=== PATIENT | female | born 2005 | race Caucasian/White ===

== ENCOUNTER 2023-09-08 17:49 | Emergency (ER) | payer OTHER, SELFPAY ==
--- NOTE | 2023-09-08 18:01 | ED.FEMALEGU ---
HPI - Female Genitourinary General Chief complaint: Urogenital-Female Stated complaint: vaginal bleeding Time Seen by Provider: 09/08/23 17:53 Source: patient Mode of arrival: ambulatory Limitations: no limitations History of Present Illness HPI Narrative: Patient is a 17-year-old female who presents with over a month of vaginal bleeding. Patient states that is not abnormal for her and has had episodes of 2-3 months of consistent bleeding. Patient states bleeding is not heavy. Changes tampon or pad every 4-6 hours. Per significant other patient had episode of unconsciousness at noon today along with vomiting and diarrhea after eating. Patient also reports worsening lower abdominal pain that is different than typical menstrual cramping. Denies any drug use. Is on the Nexplanon. Has history of hypertension lupus and epilepsy. Patient is currently taking all medications as prescribed. Patient does have an Ob. Related Data Home Medications Medication Instructions Recorded Confirmed clobetasol 0.05 % scalp solution 1 applic topical BID 09/08/23 09/08/23 docusate sodium 100 mg capsule 1 mg PO BID PRN Constipation 09/08/23 09/08/23 hydroxychloroquine 200 mg tablet 400 mg PO DAILY 09/08/23 09/08/23 mycophenolate sodium 360 mg 720 mg PO BID 09/08/23 09/08/23 tablet,delayed release topiramate 50 mg tablet 50 mg PO BID 09/08/23 09/08/23 Allergies Allergy/AdvReac Type Severity Reaction Status Date / Time No Known Allergies Allergy Verified 09/08/23 18:12 Review of Systems Review of Systems: All systems reviewed & are unremarkable except as noted in HPI and below Constitutional: Constitutional: Denies body ache(s), Denies chills, Denies fatigue, Denies fever(s), Denies headache(s), Denies malaise and Denies weakness Eyes: Eyes: Denies blurry vision, Denies irritation and Denies loss of vision ENT: Denies otalgia, Denies headache(s), Denies nasal discharge, Denies sinus pain and Denies sore throat Cardiovascular: Cardiovascular: Denies chest pain, Denies irregular heart rhythm and Denies dyspnea Respiratory: Respiratory: Denies dyspnea Gastrointestinal: Gastrointestinal: Reports abdominal pain, Denies melena, Denies hematochezia, Reports diarrhea, Denies nausea and Reports vomiting Genitourinary: Genitourinary: Reports abnormal vaginal bleeding Musculoskeletal: Musculoskeletal: Denies back pain, Denies myalgias and Denies arthralgias Integumentary/Breasts: Skin/Breast: Denies pruritus and Denies rash Neurologic: Denies headache(s), Denies loss of vision and Denies weakness Psychiatric: Psychiatric: Reports no additional psychiatric complaints Endocrine: Endocrine: Denies fatigue PMFSH Comments At time of signature, agree with nursing past medical, surgical, social and family history. There is no relevant family history pertinent to the presenting complaint. Exam Const: General: cooperative, healthy appearing, comfortable, no acute distress and well nourished Nutritional Appearance: well nourished Orientation/consciousness: patient oriented x3 Limitations: no limitations HENMT: Head: normal to inspection, normocephalic and atraumatic Ears: hearing grossly normal bilaterally and external ears normal Face/Nose/Sinus: Normal external nose present, normal facial exam and face symmetric Face and sinus: normal facial exam and face symmetric Mouth: Yes lip normal Eyes: General: appearance normal, both eyes and all related structures Alignment and Position: alignment normal and position normal Periorbital: periorbital findings normal Eyelids: eyelids normal Pupils: Equal, round and reactive pupils present EOM: EOMs intact bilaterally Neck: Neck: normal visual inspection, full ROM and supple Chest: Chest palpation & inspection: normal inspection of the chest Resp: Effort & Inspection: normal respiratory effort and able to speak in complete sentences Auscultation: clear to auscultation bilaterally Cardio: R
[2023-09-08 18:02] VITALS: BP 123/74; PULSE 83; RESP 16; TEMP 37.3; O2SAT 99
[2023-09-08 18:17] VITALS: BP 123/74; PULSE 83; RESP 16; TEMP 37.3; O2SAT 99
== END 2023-09-08 18:22 | disposition short-term general hospital (02) ==
PROVIDERS: Emergency Provider Nurse Practitioner Family
DX: N93.9 Abnormal uterine and vaginal bleeding, unspecified (principal); R10.31 Right lower quadrant pain; R10.32 Left lower quadrant pain; M32.9 Systemic lupus erythematosus, unspecified; G40.909 Epilepsy, unspecified, not intractable, without status epilepticus
CPT/HCPCS: 99202; G0463

== ENCOUNTER 2023-09-08 18:46 | Emergency (ER) | payer OTHER, SELFPAY ==
[2023-09-08 18:55] VITALS: BP 119/78; PULSE 75; RESP 15; TEMP 36.6; O2SAT 100
[2023-09-08 20:24] LABS: Basophils Percent Auto 0.6 % (0.2-1.2); Eosinophils Absolute Auto 0.1 K/mm3 (0-0.3); Eosinophils Percent Auto 1.4 % (0-4.4); Hematocrit 40.9 % (37.0-47.0); Hemoglobin 13.4 g/dL (12.0-15.0); Immature Granulocyte Absolute 0.03 K/mm3 (0.00-0.031); Immature Granulocyte Percent A 0.4 % (0-0.5); Lymphocytes Absolute Auto 1.47 K/mm3 (0.9-3.2); Lymphocytes Percent Auto 20.8 % (18.3-44.2); Mean Corpuscular HGB Conc 32.8 g/dl (32-36); Mean Corpuscular Hemoglobin 30.9 pg (26-34); Mean Corpuscular Volume 94.5 fl (80-100); Mean Platelet Volume 11.5 fl (7.4-10.4); Monocytes Absolute Auto 0.6 K/mm3 (0.1-0.6); Monocytes Percent Auto 9.1 % (2.6-8.5); Neutrophils Absolute Auto 4.8 K/mm3 (1.3-6.7); Neutrophils Percent Auto 67.7 % (45.5-73.1); Platelet Count Result 178 k/mm3 (150-375); Red Blood Count 4.33 M/mm3 (4.2-5.4); Red Cell Distribution Width 12.5 % (11.5-14.5); White Blood Count 7.1 K/mm3 (4.5-10.0)
[2023-09-08 20:50] LABS: Prothrombin Time 13.8 Seconds (11.1-14.7)
[2023-09-08 20:51] LABS: Partial Thromboplastin Time 29.3 Seconds (22.3-36.8)
--- NOTE | 2023-09-08 20:54 | ED_ITS ---
HPI - Female Genitourinary General Chief complaint: Vaginal Bleeding Stated complaint: vag bleeding Time Seen by Provider: 09/08/23 18:57 History of Present Illness HPI Narrative: This is a 17-year-old female, history of lupus, with Nexplanon implantation and May of this year, who presents to the emergency department complaining vaginal bleeding for the past month. The patient states she uses approximately 5 tampons or maxi pads a day. This is associated with some fatigue, though no chest pain shortness of breath or loss of consciousness. The patient states she has had previous and periods, the non lasting this long. She complains of mild associated cramping but has no other complaints at this time. Related Data Home Medications Medication Instructions Recorded Confirmed clobetasol 0.05 % scalp solution 1 applic topical BID 09/08/23 09/08/23 docusate sodium 100 mg capsule 1 mg PO BID PRN Constipation 09/08/23 09/08/23 hydroxychloroquine 200 mg tablet 400 mg PO DAILY 09/08/23 09/08/23 mycophenolate sodium 360 mg 720 mg PO BID 09/08/23 09/08/23 tablet,delayed release topiramate 50 mg tablet 50 mg PO BID 09/08/23 09/08/23 Allergies Allergy/AdvReac Type Severity Reaction Status Date / Time No Known Allergies Allergy Verified 09/08/23 18:59 Review of Systems Review of Systems: CONSTITUTIONAL: Complains of some fatigue. Denies fever, chills, or sweats. CARDIOVASCULAR: Denies chest pain, palpitations, or edema. RESPIRATORY: Denies cough or dyspnea. GASTROINTESTINAL: Denies abdominal pain, nausea, vomiting, or diarrhea. GENITOURINARY: LMP ongoing. Denies dysuria or hematuria. SKIN: Denies rash or itching. MUSCULOSKELETAL: Denies back pain, joint pain, or myalgia. NEUROLOGIC: Denies headache, numbness, dizziness, or weakness. PSYCHIATRIC: Denies anxiety or depression. [facility] Past Medical History Medical History Lupus Seizures Surgical History Surgical History No significant past surgical history Social History Social History (Updated 09/08/23 @ 20:56 by Marc Parker MD) Smoking status: Never smoker Alcohol intake: never Substance use: never Exam Narrative: GENERAL: Well-developed, well-nourished, and in no acute distress. HEAD: Normocephalic, atraumatic. EYES: PERRLA and EOMI. CHEST: Clear to auscultation. No respiratory distress. No wheezes rales or rhonchi HEART: Regular rate and rhythm. No murmur heard. Normal peripheral pulses. ABDOMEN: Soft, nontender, nondistended, normal active bowel sounds. (chaperoned by female inventory technician Taye): Normal external female genitalia. Speculum exam demonstrates a small amount of blood in the vaginal vault without active bleeding or passage of clots. Cervix appears normal. Bimanual exam does not demonstrate cervical motion tenderness though does elicit mild bilateral adnexal cramping. EXTREMITIES: Normal range of motion. No edema. SKIN: Warm, dry, no rash. NEURO: Alert and oriented x3. No focal deficit. Moving all 4 limbs spontaneously PSYCH: Normal mood and affect. Course Course Emergency Course: 20:57 - CBC unremarkable including hemoglobin of 13.4 normal platelets. Coags within normal limits. Bedside negative. Will discharge recommendation for Gynecology follow-up. I suspect patient may have abnormal vaginal bleeding associated with Nexplanon use. I discussed the findings and recommendations with the patient. Discussed return and emergency precautions including signs/symptoms of symptomatic anemia and ACS. The patient voiced understanding and agreement with the plan. All questions answered to her satisfaction. Vital Signs Vital signs: Vital Signs Temperature 97.8 F 09/08/23 18:55 Pulse Rate 75 09/08/23 18:55 Respiratory Rate 15 09/08/23 18:55 Blood Pressure 119/78 09/08/23 18:55 Pulse Oximetry 100 09/08/23 18:55 Oxygen Delivery Room Air 09/08/23 18:55 Temperature 97.8 F 09/08/23 18:55 Pulse Rate 75 09/08/23 18:55 Respiratory Rate 15 09/08/23 18:55 Blood Pressure 119/78 09/08/23 18:55 Pulse Oximetry 100 09/08/23 18:55 Oxygen Delivery Room Air 09/08/23 18:55 MDM - Female Genitourinary MDM Narrative Medical decision making narrative: Plan: Labs, test, reassess Differential Diagnosis Differential diagnosis: Likely dysmenorrhea and other (Coagulopathy, anemia, medication side effect, other) Lab Data 09/08/23 19:59 Labs: Lab Results 09/08/23 09/08/23 Range/Units 19:59 20:32 WBC 7.1 (4.5-10.0) K/mm3 RBC 4.33 (4.2-5.4) M/mm3 Hgb 13.4 (12.0-15.0) g/dL Hct 40.9 (37.0-47.0) % MCV 94.5 (80-100) fl MCH 30.9 (26-34) pg MCHC 32.8 (32-36) g/dl RDW 12.5 (11.5-14.5) % Plt Count 178 (150-375) k/mm3 MPV 11.5 H (7.4-10.4) fl Immature Gran % (Auto) 0.4 (0-0.5) % Neut % (Auto) 67.7 (45.5-73.1) % Lymph % (Auto) 20.8 (18.3-44.2) % [place] % (Auto) 9.1 H (2.6-8.5) % Eos % (Auto) 1.4 (0-4.4) % Baso % (Auto) 0.6 (0.2-1.2) % Lymph # (Auto) 1.47 (0.9-3.2) K/mm3 [place] # (Auto) 0.6 (0.1-0.6) K/mm3 Eos # (Auto) 0.1 (0-0.3) K/mm3 Baso # (Auto) 0.0 (0.0-0.1) K/mm3 Abs Immat Gran (auto) 0.03 (0.00-0.031) K/mm3 Absolute Neuts (auto) 4.8 (1.3-6.7) K/mm3 Absolute Nucleated RBC 0.000 (0.0-0.012) K/mm3 Nucleated RBC % 0.0 (0.0-0.2) % PT 13.8 (11.1-14.7) Seconds INR 1.0 APTT 29.3 (22.3-36.8) Seconds UCG Bedside Result Negative Reference Range: Negative Discharge Plan Discharge Clinical Impression: Abnormal vaginal bleeding Patient Disposition: Home, Self-Care Condition: Stable Instructions: Antibiotic Form, Abnormal (Dysfunctional) Uterine Bleeding (ED) Additional Instructions: You were seen in the emergency department. I suspect your symptoms are related to your Nexplanon. I recommend following up with your primary care doctor and printed circuit boards stripper etcher. If you develop chest pain, shortness of breath, loss of consciousness, or if you have other emergent concerns for life, limb, or eyesight, return to the emergency department. Patient Language: Lithuanian Prescriptions: No Action docusate sodium 100 mg capsule 1 mg PO BID PRN (Reason: Constipation) hydroxychloroquine 200 mg tablet 400 mg PO DAILY clobetasol 0.05 % solution 1 applic TOPICAL BID topiramate 50 mg tablet 50 mg PO BID mycophenolate sodium 360 mg tablet,delayed release (DR/EC) 720 mg PO BID Follow-up/Referrals: Katelynn Hernandez [Other] - 2 Weeks PHYSICIAN,FORMING PRESS OPERATOR [Primary Care Provider] - Time of Disposition: 20:59
[2023-09-08] MEDS: ACETAMINOPHEN 500 MG TABLET 1000 MG PO (20:57)
== END 2023-09-08 21:13 | disposition home or self-care (01) ==
PROVIDERS: Emergency Provider Preventive Medicine Aerospace Medicine
DX: N93.9 Abnormal uterine and vaginal bleeding, unspecified (principal); M32.9 Systemic lupus erythematosus, unspecified
CPT/HCPCS: 36415; 81025; 85025; 85610; 85730; 99202; 99283; A9270; G0463

== ENCOUNTER 2024-01-15 16:58 | Emergency (ER) | payer OTHER, SELFPAY ==
--- NOTE | ~2024-01-15 | XR_ITS ---
EXAMINATION: XR chest 2V DATE: 01/15/2024 18:46 INDICATION: Intentional bleach ingestion. TECHNIQUE: Frontal and lateral views of the chest were obtained. COMPARISON: None. FINDINGS: There is no pneumonia, pleural effusion, or pneumothorax. The heart size is normal. IMPRESSION: 1. No acute cardiopulmonary disease. Reviewed, dictated and finalized at location A.
[2024-01-15 17:01] VITALS: BP 142/92; PULSE 99; RESP 16; TEMP 37.1; O2SAT 100
--- NOTE | 2024-01-15 17:04 | ECG_ITS ---
Test Date: 2024-01-15 17:29:04 Measurements Intervals [place] Rate: 90 P: 61 WV: 154 QRS: -3 QRSD: 91 T: 30 QT: 355 QTc: 435 Interpretive Statements SINUS RHYTHM WITH SINUS ARRHYTHMIA No previous ECG available for comparison Electronically Signed On 01-16-2024 15:33:10 CDT by Arianna Medeiros M.D.
--- NOTE | 2024-01-15 17:06 | ED.PSYCH ---
HPI - Psych General Stated Complaint: INTENTIONAL BLEACH INGESTION Time Seen by Provider: 01/15/24 17:06 Focused HPI: This is a 18 year old female that presents to the ER after suicide attempt. Reports she has been struggling to find a job and that has been very stressful. Reports she drank about a capful of bleach in order to kill herself. Reports history of previous attempts. Reports some irritation in her throat. Denies difficulty swallowing or trouble breathing. GENERAL: Tearful, anxious, but in no acute distress. HEAD: Normocephalic, atraumatic. CHEST: Clear to auscultation. ?No respiratory distress. HEART: Regular rate and rhythm.? NEURO: ?Alert and oriented x3. Patient screened in triage and initial orders placed.? ?Additional care and disposition to be based upon?diagnostic testing and treatment. Related Data Home Medications Medication Instructions Recorded Confirmed clobetasol 0.05 % scalp solution 1 applic topical BID 09/08/23 09/08/23 docusate sodium 100 mg capsule 1 mg PO BID PRN Constipation 09/08/23 09/08/23 hydroxychloroquine 200 mg tablet 400 mg PO DAILY 09/08/23 09/08/23 mycophenolate sodium 360 mg 720 mg PO BID 09/08/23 09/08/23 tablet,delayed release topiramate 50 mg tablet 50 mg PO BID 09/08/23 09/08/23 Allergies Allergy/AdvReac Type Severity Reaction Status Date / Time No Known Allergies Allergy Verified 09/08/23 18:59 [facility] Past Medical History Medical History Lupus Seizures Surgical History Surgical History No significant past surgical history Social History Social History (Updated 09/08/23 @ 20:56 by Marc Parker MD) Smoking status: Never smoker Alcohol intake: never Substance use: never Discharge Plan Discharge Prescriptions: No Action docusate sodium 100 mg capsule 1 mg PO BID PRN (Reason: Constipation) hydroxychloroquine 200 mg tablet 400 mg PO DAILY clobetasol 0.05 % solution 1 applic TOPICAL BID topiramate 50 mg tablet 50 mg PO BID mycophenolate sodium 360 mg tablet,delayed release (DR/EC) 720 mg PO BID Follow-up/Referrals: PHYSICIAN,RACING MECHANIC [Primary Care Provider] -
--- NOTE | 2024-01-15 17:11 | ED.PSYCH ---
HPI - Psych General Chief Complaint: Psychiatric Symptoms Stated Complaint: INTENTIONAL BLEACH INGESTION Time Seen by Provider: 01/15/24 17:06 Related Data Home Medications Medication Instructions Recorded Confirmed clobetasol 0.05 % scalp solution 1 applic topical BID 09/08/23 09/08/23 docusate sodium 100 mg capsule 1 mg PO BID PRN Constipation 09/08/23 09/08/23 hydroxychloroquine 200 mg tablet 400 mg PO DAILY 09/08/23 09/08/23 mycophenolate sodium 360 mg 720 mg PO BID 09/08/23 09/08/23 tablet,delayed release topiramate 50 mg tablet 50 mg PO BID 09/08/23 09/08/23 Allergies Allergy/AdvReac Type Severity Reaction Status Date / Time No Known Allergies Allergy Verified 09/08/23 18:59 [facility] Past Medical History Medical History Lupus Seizures Surgical History Surgical History No significant past surgical history Social History Social History (Updated 09/08/23 @ 20:56 by Marc Parker MD) Smoking status: Never smoker Alcohol intake: never Substance use: never Course Vital Signs Vital signs: Vital Signs Temperature 37.1 C 01/15/24 17:01 Pulse Rate 99 01/15/24 17:01 Respiratory Rate 16 01/15/24 17:01 Blood Pressure 142/92 H 01/15/24 17:01 Pulse Oximetry 100 01/15/24 17:01 Oxygen Delivery Room Air 01/15/24 17:01 Temperature 37.1 C 01/15/24 17:01 Pulse Rate 99 01/15/24 17:01 Respiratory Rate 16 01/15/24 17:01 Blood Pressure 142/92 H 01/15/24 17:01 Pulse Oximetry 100 01/15/24 17:01 Oxygen Delivery Room Air 01/15/24 17:01 Discharge Plan Discharge Prescriptions: No Action docusate sodium 100 mg capsule 1 mg PO BID PRN (Reason: Constipation) hydroxychloroquine 200 mg tablet 400 mg PO DAILY clobetasol 0.05 % solution 1 applic TOPICAL BID topiramate 50 mg tablet 50 mg PO BID mycophenolate sodium 360 mg tablet,delayed release (DR/EC) 720 mg PO BID Follow-up/Referrals: PHYSICIAN,ACCOUNTS CLERK [Primary Care Provider] -
[2024-01-15 17:31] VITALS: BP 129/85; PULSE 107; RESP 14; O2SAT 100
[2024-01-15 17:47] LABS: BEDSIDEPREGUCG Negative
--- NOTE | 2024-01-15 17:54 | PC.NURSE ---
Called poison control. They state no intervention needed. supportive care
--- NOTE | 2024-01-15 17:59 | PC.NURSE ---
meal tray ordered for patient
[2024-01-15 18:00] LABS: Add Urine Microscopic? YES; Appearance Urine Clear (Clear); Bacteria Urine 2+ /hpf; Bilirubin Urine Negative (Negative); Blood Urine 1+ (Negative); Color Urine Yellow (Yellow); Glucose Urine UA Negative (Negative); Ketones Urine Negative (Negative); Leukocyte Esterase Ur Trace LEU/UL (Negative); Nitrate Urine Negative (Negative); Non Pathogenic Casts 0-2; Protein Urine Trace mg/dL (Negative); RBC Urine 0-2 /hpf (0-2); Squamous Epithelial Cell Urine Few /hpf (Few); Urobilinogen Urine 0.2 mg/dL (<2.0); WBC Urine 0-5 /hpf (0-3); pH Urine 5.5 (5.0-9.0)
[2024-01-15 18:10] LABS: Basophils Absolute Auto 0.1 K/mm3 (0.0-0.1); Basophils Percent Auto 0.6 % (0.2-1.2); Eosinophils Absolute Auto 0.2 K/mm3 (0-0.3); Eosinophils Percent Auto 2.5 % (0-4.4); Hematocrit 40.9 % (37.0-47.0); Hemoglobin 14.2 g/dL (12.0-15.0); Immature Granulocyte Absolute 0.05 K/mm3 (0.00-0.031); Immature Granulocyte Percent A 0.6 % (0-0.5); Lymphocytes Absolute Auto 1.62 K/mm3 (0.9-3.2); Lymphocytes Percent Auto 20.6 % (18.3-44.2); Mean Corpuscular HGB Conc 34.7 g/dl (32-36); Mean Corpuscular Volume 92.1 fl (80-100); Mean Platelet Volume 11.2 fl (7.4-10.4); Monocytes Absolute Auto 0.6 K/mm3 (0.1-0.6); Neutrophils Absolute Auto 5.3 K/mm3 (1.3-6.7); Neutrophils Percent Auto 67.7 % (45.5-73.1); Platelet Count Result 171 k/mm3 (150-375); Red Blood Count 4.44 M/mm3 (4.2-5.4); Red Cell Distribution Width 11.7 % (11.5-14.5); White Blood Count 7.9 K/mm3 (4.5-10.0)
[2024-01-15 18:11] LABS: Amphetamine Screen Urine Negative (Negative); Barbiturate Screen Urine Negative (Negative); Benzodiazepines Screen Urine Negative (Negative); Cannabinoid Screen Urine Negative (Negative); Cocaine Screen Urine Negative (Negative); Methadone Screen Urine Negative (Negative); Opiate Screen Urine Negative (Negative); Phencyclidine Screen Urine Negative (Negative)
[2024-01-15 18:19] LABS: Ethanol < 10 mg/dL (<10)
[2024-01-15 18:21] LABS: Alanine Aminotransferase 19 U/L (6-35); Albumin Level 4.2 g/dL (3.5-5.1); Alkaline Phosphatase 55 U/L (38-126); Anion Gap 10 mmol/L (4-12); Aspartate Amino Transferase 24 U/L (14-36); Bilirubin,Total 0.3 mg/dL (0.2-1.3); Blood Urea Nitrogen 15 mg/dL (7-17); Calcium 8.7 mg/dL (8.4-10.2); Carbon Dioxide 24 mmol/L (22-30); Chloride 104 mmol/L (98-107); Estimated CRCL calculation 89 ml/min; Estimated Glomerular Filt Rate > 60; Glucose 96 mg/dL (65-110); Lipase 58 U/L (23-300); Potassium 3.6 mmol/L (3.4-5.0); Sodium 138 mmol/L (137-145)
--- NOTE | 2024-01-15 18:27 | ED.PSYCH ---
HPI - Psych General Chief Complaint: Psychiatric Symptoms <Jennifer Bunch APRN - Last Filed: 01/15/24 19:36> Stated Complaint: INTENTIONAL BLEACH INGESTION <Jennifer Bunch APRN - Last Filed: 01/15/24 19:36> Time Seen by Provider: 01/15/24 17:06 <Jennifer Bunch APRN - Last Filed: 01/15/24 19:36> Focused HPI: This is a 18 year old female that presents to the ER after suicide attempt. Reports she has been struggling to find a job and that has been very stressful. Reports she drank about a capful of bleach in order to kill herself. Reports history of previous attempts. Reports some irritation in her throat. Denies difficulty swallowing or trouble breathing. GENERAL: Tearful, anxious, but in no acute distress. HEAD: Normocephalic, atraumatic. CHEST: Clear to auscultation. ?No respiratory distress. HEART: Regular rate and rhythm.? NEURO: ?Alert and oriented x3. Patient screened in triage and initial orders placed.? ?Additional care and disposition to be based upon?diagnostic testing and treatment. <Jennifer Bunch APRN - Last Filed: 01/15/24 19:36> History of Present Illness HPI Narrative: I have reviewed the HPI and agree with the assessment above performed by the PA. <Jennifer Bunch APRN - Last Filed: 01/15/24 19:36> Related Data Home Medications: Home Medications Medication Instructions Recorded Confirmed hydroxychloroquine 200 mg tablet 400 mg PO DAILY 09/08/23 01/15/24 mycophenolate sodium 360 mg 720 mg PO BID 09/08/23 01/15/24 tablet,delayed release topiramate 50 mg tablet 50 mg PO BID 09/08/23 01/15/24 <Jennifer Bunch APRN - Last Filed: 01/15/24 19:36> Allergies/Adverse Reactions: Allergies Allergy/AdvReac Type Severity Reaction Status Date / Time No Known Allergies Allergy Verified 01/15/24 17:33 <Jennifer Bunch APRN - Last Filed: 01/15/24 19:36> Review of Systems Review of Systems: All systems reviewed & are unremarkable except as noted in HPI and below <Jennifer Bunch APRN - Last Filed: 01/15/24 19:36> PMFSH Past Medical History Medical History: Medical History Lupus Seizures <Jennifer Bunch APRN - Last Filed: 01/15/24 19:36> Surgical History Surgical History: Surgical History No significant past surgical history <Jennifer Bunch APRN - Last Filed: 01/15/24 19:36> Social History Social History: Social History Smoking status: Never smoker Alcohol intake: never Substance use: never Substance use type: does not use <Jennifer Bunch APRN - Last Filed: 01/15/24 19:36> Exam Narrative: GENERAL: Well-appearing, well-nourished and in no acute distress. CARDIAC: Regular rate and rhythm without murmurs, rubs or gallops. RESPIRATORY: Clear to auscultation bilaterally. No wheezes, rales or rhonchi. ABDOMEN: Soft, nontender, normoactive bowel sounds throughout, no guarding, no rebound. No masses appreciated. EXTREMITIES: Normal range of motion, no swelling, clubbing or other deformities. NEUROLOGICAL: Cranial nerves II through XII grossly intact, no focal deficits noted. SKIN: Warm, dry, normal color, no rashes, no lesions. <Jennifer Bunch APRN - Last Filed: 01/15/24 19:36> Course Course Emergency Course: patient handed off to me by Jennifer Medellin pending crisis evaluation. She has been evaluated by crisis and deemed acceptable for psychiatric admission under voluntary status. Pending bed assignment, patient began developing a headache and had an episode of vomiting. Vomit is without hematemesis. She denies abdominal pain or other symptoms. She remains well-appearing, temperature is normal at 97. She was given Tylenol and ODT Zofran. Pt tells me she did spit the bleach out prior to swallowing. Bed has been
[2024-01-15 18:28] LABS: Acetaminophen < 10 ug/mL (10-30); Salicylate < 1.0 mg/dL (2-20)
[2024-01-15 20:12] VITALS: BP 110/56; PULSE 79; RESP 16; TEMP 36.8; O2SAT 100
--- NOTE | 2024-01-15 20:16 | PC.NURSE ---
Poison control case closed; .
[2024-01-15] MEDS: TOPIRAMATE 25 MG TABLET 50 MG PO (21:47)
[2024-01-16] MEDS: ACETAMINOPHEN 500 MG TABLET 1000 MG PO (00:01)
[2024-01-16] MEDS: ONDANSETRON HCL ODT 4 MG TABLET PO (00:02)
--- NOTE | 2024-01-16 01:05 | PC.NURSE ---
Discussion with patient about options for placement and how adoption social worker believes that it is not safe for her to go home, therefor involuntary paperwork was filled out by adoption social worker. Patient states she is willing to get help at this time.
--- NOTE | 2024-01-16 01:16 | PC.NURSE ---
Bridgette from crisis stated that [facility] would like the patient's chart. Chart faxed to [phone] at this time.
--- NOTE | 2024-01-16 02:43 | PC.NURSE ---
[facility] accepted patient; earliest arrival time is 1030. Accepting physician Eleazar Olivares WEATHER REPORTER; report given to Blake JUNE.
[2024-01-16] MEDS: TOPIRAMATE 25 MG TABLET 50 MG PO (08:12)
[2024-01-16] MEDS: HYDROXYCHLOROQUINE SULFATE 200 MG TABLET 400 MG PO (08:15)
[2024-01-16 08:19] VITALS: BP 117/67; PULSE 79; RESP 16; TEMP 36.8; O2SAT 99
--- NOTE | 2024-01-16 08:21 | PC.NURSE ---
Breakfast tray ordered for pt
--- NOTE | 2024-01-16 09:06 | PC.NURSE ---
earnest called at [phone] eta [phone] to 1300 trip # [id number]
[2024-01-16 12:07] VITALS: BP 127/77; PULSE 99; RESP 18; O2SAT 99
== END 2024-01-16 12:10 ==
PROVIDERS: Physician Assistant; Emergency Provider Physician Assistant
DX: R45.851 Suicidal ideations (principal); M32.9 Systemic lupus erythematosus, unspecified; G40.909 Epilepsy, unspecified, not intractable, without status epilepticus
CPT/HCPCS: 36415; 71046; 80053; 80307; 81001; 81025; 83690; 84443; 85025; 93005; 99285; A9270

== ENCOUNTER 2025-03-30 10:17 | Emergency (ER) | payer OTHER, SELFPAY ==
[2025-03-30 10:25] VITALS: BP 124/78; PULSE 94; RESP 18; TEMP 37; O2SAT 99
--- NOTE | 2025-03-30 10:47 | ED_ITS ---
HPI - Eye Problem General Chief complaint: Eye Problems Stated complaint: Eyes Irritation Time Seen by Provider: 03/30/25 10:41 Source: patient and RN notes reviewed Mode of arrival: ambulatory Limitations: no limitations History of Present Illness HPI Narrative: 19-year-old female presents concern for eye irritation for 2 days. She reports she had redness, watery drainage and there crustiness yesterday. Reports those symptoms are improving, she did not have any crusted drainage this morning. She denies vision changes, pain, irritation. Reports she was exposed to adrianna CASE chief complaint: eye redness Related Data Home Medications ?Medication ?Instructions ?Recorded ?Confirmed ?Last Taken ?Type hydroxychloroquine 200 mg tablet 400 mg PO DAILY 09/0701/15/24 01/15/24 History mycophenolate sodium 360 mg 720 mg PO BID 09/08/2301/15/24 History tablet,delayed release topiramate 50 mg tablet 50 mg PO BID 09/08/2301/15/24 History zonisamide 100 mg capsule mg PO 03/30/25 Unknown Hist ory Allergies Allergy/AdvReac Type Severity Reaction Status Date / Time No Known Allergies Allergy Verified 03/30/25 10:31 Review of Systems Review of Systems: CONSTITUTIONAL: Denies malaise, chills, sweats, or fever. EYES: Denies visual changes. Reports bilateral redness, itchiness, crusty discharge. ENT: Denies rhinorrhea, congestion, sinus pain, otalgia or sore throat. SKIN: Denies rash or itching. NEUROLOGIC: Denies numbness, weakness, or headache. PSYCHIATRIC: Denies anxiety or depression. All systems reviewed & are unremarkable except as noted in HPI and below [facility] Past Medical History Medical History Lupus Seizures Surgical History Surgical History No significant past surgical history Social History Social History Alcohol intake: never Substance use: never Substance use type: does not use Comments At time of signature, agree with nursing past medical, surgical, social and family history. There is no relevant family history pertinent to the presenting complaint Exam Narrative: GENERAL: Well-appearing, well-nourished, and in no acute distress. HEAD: Normocephalic, atraumatic. EYES: PERRLA, sclera clear, and EOMI. No nystagmus. Bilateral conjunctivae and sclera clear. Upper and lower eyelid unremarkable, no periorbital edema noted ENT: Nares clear, turbinates pink, no rhinorrhea or epistaxis. Mucous membranes moist. TM pearly mcgowan with sharp light reflex bilaterally; no tragal tenderness. NECK: Supple. CHEST: No respiratory distress. Speaks in full sentences. HEART: Regular rate and rhythm. SKIN: Warm, dry, no visible rash. NEURO: Alert and oriented x3. PSYCH: Normal mood and affect Course Course Emergency Course: Patient is aware of diagnosis, understands and agrees to treatment plan. Anticipatory guidance given. Patient agrees to follow-up as directed and is aware of reasons to seek care at the emergency department. Portions of this record may have been created with voice recognition software Level of Care: Express Care Visit Vital Signs Vital signs: Vital Signs Temperature 98.6 F 03/30/25 10:25 Pulse Rate 94 03/30/25 10:25 Respiratory Rate 18 03/30/25 10:25 Blood Pressure 124/78 03/30/25 10:25 Pulse Oximetry 99 03/30/25 10:25 Oxygen Delivery Room Air 03/30/25 10:25 Temperature 98.6 F 03/30/25 10:25 Pulse Rate 94 03/30/25 10:25 Respiratory Rate 18 03/30/25 10:25 Blood Pressure 124/78 03/30/25 10:25 Pulse Oximetry 99 03/30/25 10:25 Oxygen Delivery Room Air 03/30/25 10:25 Reviewed. MDM - Eye Problem MDM Narrative Medical decision making narrative: Consideration of the following conditions may be warranted for the presenting problem, they are not final diagnoses: Bacterial conjunctivitis, allergic conjunctivitis, viral conjunctivitis, foreign body, blepharitis, chalazion, hordeolum, corneal abrasion, preseptal cellulitis, orbital cellulitis. No evidence of proptosis, ophthalmoplegia, vision loss, pain with eye movement. Exam findings show no acute concerns or changes; patient is non-toxic appearing and is in no distress. Patient is appropriate for outpatient treatment and follow-up. Critical Care Time Critical Care Time Critical Care Time: No Discharge Plan Discharge Clinical Impression: Allergic conjunctivitis Patient Disposition: Home Condition: Stable Instructions: How to Use Eye Drops (ED) Additional Instructions: Do not touch or rub your eye. Use a warm or cool washcloth on your eye for comfort Use eyedrops as directed Practice good handwashing You may take Tylenol or ibuprofen for pain Follow-up with PCP or pay station collector if condition is not improving in 2-3days. Go to the emergency room if you have pain behind your eye, pressure behind your eye, difficulty seeing, or other severe symptoms Patient Language: Hebrew Prescriptions: New ketotifen fumarate [Zaditor] 0.025 % (0.035 %) drops 1 drp LEFT EYE BID PRN (Reason: allergy symptoms) Qty: 5 0RF Rx Instructions: administer at least 8 hours apart No Action hydroxychloroquine 200 mg tablet 400 mg PO DAILY topiramate 50 mg tablet 50 mg PO BID mycophenolate sodium 360 mg tablet,delayed release (DR/EC) 720 mg PO BID zonisamide 100 mg capsule PO Follow-up/Referrals: PHYSICIAN,S[employer]IT[facility] [employer]PER[employer]OR [Primary Care Provider, Internal Medicine] Stand Alone Forms: Work/School Release IP Time of Disposition: 10:50
== END 2025-03-30 11:03 | disposition home or self-care (01) ==
PROVIDERS: Emergency Provider Nurse Practitioner
DX: H10.13 Acute atopic conjunctivitis, bilateral (principal); G40.909 Epilepsy, unspecified, not intractable, without status epilepticus
CPT/HCPCS: 99213; G0463